=== PATIENT | female | born 1945 | race Two or more races ===

== ENCOUNTER 2018-01-19 10:03 | Emergency (ER) | payer OTHER ==
[~2018-01-19] VITALS: Ht 157.5 cm; Wt 108.9 kg
[~2018-01-19 10:03] MED LIST: AZITHROMYCIN250 MG; CRESTOR20 MG PO; GLUCOPHAGE XR500 MG; GLUCOTROL10 MG PO; HYZAAR 100-251 UDTAB PO; LEVOTHYROXINE SO1 GM; LEVOXYL25 MCG PO; LIPITOR20 MG; TESSALON PERLE100 MG PO; TUSSI PRES-B L120 M1 PO
[2018-01-19] MEDS ORDERED: INDAPAMIDE2.5 MG (10:12)
[2018-01-19] MEDS ORDERED: COZAAR100 MG (10:12)
[2018-01-19] MEDS ORDERED: LOSARTAN-HCTZ1 EAC2 PO (15:28)
== END 2018-01-19 15:55 | disposition home or self-care (01) ==
LOC: ER 10:03
DX: I10 Essential (primary) hypertension (principal)

== ENCOUNTER 2018-02-14 12:04 | Emergency (ER) | payer OTHER ==
[~2018-02-14] VITALS: Ht 152.4 cm; Wt 108.9 kg
[~2018-02-14 12:04] MED LIST changes: +COZAAR100 MG; +INDAPAMIDE2.5 MG; +LOSARTAN-HCTZ1 EAC2 PO
[2018-02-14] MEDS ORDERED: LANTUS SOL100 UNIT/1 (12:14)
== END 2018-02-14 17:32 | disposition home or self-care (01) ==
LOC: ER 12:04
DX: K29.60 Other gastritis without bleeding (principal)

== ENCOUNTER 2018-07-04 11:09 | Emergency (ER) | payer OTHER ==
[~2018-07-04] VITALS: Ht 152.4 cm; Wt 108.9 kg
[~2018-07-04 11:09] MED LIST changes: +LANTUS SOL100 UNIT/1
[2018-07-04] MEDS ORDERED: SYNTHROID88 MCG PO (12:13)
== END 2018-07-04 13:26 | disposition home or self-care (01) ==
LOC: ER 11:09
DX: L03.116 Cellulitis of left lower limb (principal); L03.115 Cellulitis of right lower limb; M79.662 Pain in left lower leg; M79.661 Pain in right lower leg; S80.822S Blister (nonthermal), left lower leg, sequela; S80.821S Blister (nonthermal), right lower leg, sequela; X58.XXXS Exposure to other specified factors, sequela

== ENCOUNTER 2018-10-07 14:03 | Inpatient (IN) | payer OTHER ==
[~2018-10-07] VITALS: Ht 152.4 cm; Wt 117.9 kg
[~2018-10-07 14:03] MED LIST changes: +SYNTHROID88 MCG PO
[2018-10-07] MEDS ORDERED: FUROSEMIDE40 MG/4 ML (14:33)
[2018-10-07] MEDS ORDERED: NIFEDIPINE ER30 M1 (14:33)
[2018-10-07] MEDS ORDERED: CARVEDILOL3.125 MG PO (14:33)
== END 2019-01-31 21:34 | disposition designated cancer center or children's hospital (05) | DRG 673 ==
LOC: ER 14:03 → ICU 10-08 13:47 → ICU-2 10-08 13:47 → MEDJ 10-08 13:47 → ICU 10-13 05:08 → MEDI 10-21 21:32 → MEDJ 10-25 13:40 → ICU 10-28 20:08
PROVIDERS: Radiology Vascular & Interventional Radiology; ADMIT Internal Medicine
PROC: 3E0F7GC Introduction of Other Therapeutic Substance into Respiratory Tract, Via Natural or Artificial Opening (ICD-10-PCS; 2018-10-08)
PROC: 02HV33Z Insertion of Infusion Device into Superior Vena Cava, Percutaneous Approach (ICD-10-PCS; 2018-10-10)
PROC: BT43ZZZ Ultrasonography of Bilateral Kidneys (ICD-10-PCS; 2018-10-10)
PROC: 30233N1 Transfusion of Nonautologous Red Blood Cells into Peripheral Vein, Percutaneous Approach (ICD-10-PCS; 2018-10-10)
PROC: 4A033R1 Measurement of Arterial Saturation, Peripheral, Percutaneous Approach (ICD-10-PCS; 2018-10-12)
PROC: 5A1D70Z Performance of Urinary Filtration, Intermittent, Less than 6 Hours Per Day (ICD-10-PCS; 2018-10-14)
PROC: 5A1D70Z Performance of Urinary Filtration, Intermittent, Less than 6 Hours Per Day (ICD-10-PCS; 2018-10-15)
PROC: 5A1D70Z Performance of Urinary Filtration, Intermittent, Less than 6 Hours Per Day (ICD-10-PCS; 2018-10-17)
PROC: 5A1D70Z Performance of Urinary Filtration, Intermittent, Less than 6 Hours Per Day (ICD-10-PCS; 2018-10-19)
PROC: 5A1D70Z Performance of Urinary Filtration, Intermittent, Less than 6 Hours Per Day (ICD-10-PCS; 2018-10-21)
PROC: 5A1D70Z Performance of Urinary Filtration, Intermittent, Less than 6 Hours Per Day (ICD-10-PCS; 2018-10-22)
PROC: 4A12X4Z Monitoring of Cardiac Electrical Activity, External Approach (ICD-10-PCS; 2018-10-24)
PROC: 5A1D70Z Performance of Urinary Filtration, Intermittent, Less than 6 Hours Per Day (ICD-10-PCS; 2018-10-24)
PROC: B513ZZA Fluoroscopy of Right Jugular Veins, Guidance (ICD-10-PCS; 2018-10-25)
PROC: 05HM33Z Insertion of Infusion Device into Right Internal Jugular Vein, Percutaneous Approach (ICD-10-PCS; principal; 2018-10-25 19:00)
PROC: 5A1D70Z Performance of Urinary Filtration, Intermittent, Less than 6 Hours Per Day (ICD-10-PCS; 2018-10-26)
PROC: B246ZZZ Ultrasonography of Right and Left Heart (ICD-10-PCS; 2018-10-27)
PROC: B020ZZZ Computerized Tomography (CT Scan) of Brain (ICD-10-PCS; 2018-10-28)
PROC: B54NZZZ Ultrasonography of Left Upper Extremity Veins (ICD-10-PCS; 2018-10-31)
PROC: 5A1D70Z Performance of Urinary Filtration, Intermittent, Less than 6 Hours Per Day (ICD-10-PCS; 2018-11-01)
PROC: 5A1D70Z Performance of Urinary Filtration, Intermittent, Less than 6 Hours Per Day (ICD-10-PCS; 2018-11-03)
PROC: 5A1D70Z Performance of Urinary Filtration, Intermittent, Less than 6 Hours Per Day (ICD-10-PCS; 2018-11-05)
PROC: 5A1D70Z Performance of Urinary Filtration, Intermittent, Less than 6 Hours Per Day (ICD-10-PCS; 2018-11-08)
PROC: 5A1D70Z Performance of Urinary Filtration, Intermittent, Less than 6 Hours Per Day (ICD-10-PCS; 2018-11-11)
PROC: 5A1D70Z Performance of Urinary Filtration, Intermittent, Less than 6 Hours Per Day (ICD-10-PCS; 2018-11-14)
PROC: 5A1D70Z Performance of Urinary Filtration, Intermittent, Less than 6 Hours Per Day (ICD-10-PCS; 2018-11-16)
PROC: 5A1D70Z Performance of Urinary Filtration, Intermittent, Less than 6 Hours Per Day (ICD-10-PCS; 2018-11-17)
PROC: 5A1D70Z Performance of Urinary Filtration, Intermittent, Less than 6 Hours Per Day (ICD-10-PCS; 2018-11-25)
PROC: B44HZZZ Ultrasonography of Bilateral Lower Extremity Arteries (ICD-10-PCS; 2018-11-28)
PROC: 5A1D70Z Performance of Urinary Filtration, Intermittent, Less than 6 Hours Per Day (ICD-10-PCS; 2018-11-29)
PROC: 5A1D70Z Performance of Urinary Filtration, Intermittent, Less than 6 Hours Per Day (ICD-10-PCS; 2018-12-01)
PROC: 5A1D70Z Performance of Urinary Filtration, Intermittent, Less than 6 Hours Per Day (ICD-10-PCS; 2018-12-03)
PROC: 5A1D70Z Performance of Urinary Filtration, Intermittent, Less than 6 Hours Per Day (ICD-10-PCS; 2018-12-06)
PROC: 0JBQ0ZZ Excision of Right Foot Subcutaneous Tissue and Fascia, Open Approach (ICD-10-PCS; 2018-12-07)
PROC: 5A1D70Z Performance of Urinary Filtration, Intermittent, Less than 6 Hours Per Day (ICD-10-PCS; 2018-12-08)
PROC: 0BH17EZ Insertion of Endotracheal Airway into Trachea, Via Natural or Artificial Opening (ICD-10-PCS; 2018-12-12)
PROC: 5A1955Z Respiratory Ventilation, Greater than 96 Consecutive Hours (ICD-10-PCS; 2018-12-12)
PROC: B246ZZZ Ultrasonography of Right and Left Heart (ICD-10-PCS; 2018-12-15)
PROC: 5A1D70Z Performance of Urinary Filtration, Intermittent, Less than 6 Hours Per Day (ICD-10-PCS; 2018-12-22)
PROC: 5A1D70Z Performance of Urinary Filtration, Intermittent, Less than 6 Hours Per Day (ICD-10-PCS; 2018-12-24)
PROC: 5A1D70Z Performance of Urinary Filtration, Intermittent, Less than 6 Hours Per Day (ICD-10-PCS; 2018-12-26)
PROC: 5A1D70Z Performance of Urinary Filtration, Intermittent, Less than 6 Hours Per Day (ICD-10-PCS; 2018-12-27)
PROC: 8E0ZXY6 Isolation (ICD-10-PCS; 2018-12-30)
PROC: 5A1D70Z Performance of Urinary Filtration, Intermittent, Less than 6 Hours Per Day (ICD-10-PCS; 2018-12-31)
PROC: 5A1D70Z Performance of Urinary Filtration, Intermittent, Less than 6 Hours Per Day (ICD-10-PCS; 2019-01-02)
PROC: 5A1D70Z Performance of Urinary Filtration, Intermittent, Less than 6 Hours Per Day (ICD-10-PCS; 2019-01-04)
PROC: 5A1D70Z Performance of Urinary Filtration, Intermittent, Less than 6 Hours Per Day (ICD-10-PCS; 2019-01-06)
PROC: 5A1D70Z Performance of Urinary Filtration, Intermittent, Less than 6 Hours Per Day (ICD-10-PCS; 2019-01-09)
PROC: 5A1D70Z Performance of Urinary Filtration, Intermittent, Less than 6 Hours Per Day (ICD-10-PCS; 2019-01-11)
PROC: 5A1D70Z Performance of Urinary Filtration, Intermittent, Less than 6 Hours Per Day (ICD-10-PCS; 2019-01-13)
PROC: 5A1D70Z Performance of Urinary Filtration, Intermittent, Less than 6 Hours Per Day (ICD-10-PCS; 2019-01-16)
PROC: 5A1D70Z Performance of Urinary Filtration, Intermittent, Less than 6 Hours Per Day (ICD-10-PCS; 2019-01-20)
PROC: 5A1D70Z Performance of Urinary Filtration, Intermittent, Less than 6 Hours Per Day (ICD-10-PCS; 2019-01-22)
PROC: 0HBRXZZ Excision of Toe Nail, External Approach (ICD-10-PCS; 2019-01-23)
PROC: 5A1D70Z Performance of Urinary Filtration, Intermittent, Less than 6 Hours Per Day (ICD-10-PCS; 2019-01-23)
PROC: 5A1D70Z Performance of Urinary Filtration, Intermittent, Less than 6 Hours Per Day (ICD-10-PCS; 2019-01-25)
PROC: 5A1D70Z Performance of Urinary Filtration, Intermittent, Less than 6 Hours Per Day (ICD-10-PCS; 2019-01-27)
PROC: 5A1D70Z Performance of Urinary Filtration, Intermittent, Less than 6 Hours Per Day (ICD-10-PCS; 2019-01-30)
DX: I12.0 Hypertensive chronic kidney disease with stage 5 chronic kidney disease or end stage renal disease (principal); I50.33 Acute on chronic diastolic (congestive) heart failure; I21.4 Non-ST elevation (NSTEMI) myocardial infarction; J16.8 Pneumonia due to other specified infectious organisms; R09.2 Respiratory arrest; R65.21 Severe sepsis with septic shock; A41.89 Other specified sepsis; N17.8 Other acute kidney failure; L03.116 Cellulitis of left lower limb; L03.115 Cellulitis of right lower limb; N18.5 Chronic kidney disease, stage 5; G93.1 Anoxic brain damage, not elsewhere classified; E11.52 Type 2 diabetes mellitus with diabetic peripheral angiopathy with gangrene; I96 Gangrene, not elsewhere classified; L97.828 Non-pressure chronic ulcer of other part of left lower leg with other specified severity; L97.818 Non-pressure chronic ulcer of other part of right lower leg with other specified severity; L03.032 Cellulitis of left toe; B35.1 Tinea unguium; E66.01 Morbid (severe) obesity due to excess calories; B37.2 Candidiasis of skin and nail; B95.2 Enterococcus as the cause of diseases classified elsewhere; B96.89 Other specified bacterial agents as the cause of diseases classified elsewhere; D63.1 Anemia in chronic kidney disease; D69.49 Other primary thrombocytopenia; E11.65 Type 2 diabetes mellitus with hyperglycemia; E88.09 Other disorders of plasma-protein metabolism, not elsewhere classified